=== PATIENT | male | born 1985 | race Caucasian/White ===

== ENCOUNTER 2016-08-23 17:08 | Emergency (ER) | payer OTHER ==
[~2016-08-23] VITALS: Ht 180.3 cm; Wt 155.8 kg
[~2016-08-23 17:08] MED LIST: AMOXICILLIN500 M1 PO; BACTROBAN CREAM15 GM TP; HYDROCODON-ACE1 EAC7 PO; MOTRIN800 MG PO; TYLENOL EXTRA500 MG PO; ZYRTEC10 M2 PO
[2016-08-23] MEDS ORDERED: MOTRIN600 MG PO (18:20)
[2016-08-23] MEDS ORDERED: ULTRACET1 TABLET PO (18:20)
[2016-08-23 18:41] VITALS: BP 138/94
== END 2016-08-23 18:51 | disposition home or self-care (01) ==
LOC: EME 17:08
DX: S93.422A Sprain of deltoid ligament of left ankle, initial encounter (principal); X50.1XXA Overexertion from prolonged static or awkward postures, initial encounter; Y99.0 Civilian activity done for income or pay
CPT/HCPCS: 73610; 99281; 99283